=== PATIENT | female | born 2000 | race Two or more races ===

== ENCOUNTER 2020-01-20 14:26 | Emergency (ER) | payer BC ==
--- NOTE | 2020-01-20 15:26 | ER Document Report ---
ED Medical Screen (RME) - General Chief Complaint: Altered Mental Status Stated Complaint: CONFUSION/DIAHERRA Notes: Patient is a 19-year-old female who presents to the emergency department accompanied by her mother with a chief complaint of suspected serotonin syndrom e. Mom reports about a couple weeks ago the patient was started on Zoloft. She states she then saw the dentist and had her wisdom teeth removed and was placed on oxycodone. Mom reports gradually over the past week or so the patient has become more "manic". She states she is not eating or drinking or taking care of herself appropriately. States that the patient is "inside her head". States th at she continues to "perseverate on the coronavirus". States she is not acting her normal self and is concerned so she brought her for evaluation. I have treated and performed a rapid initial assessment of this patient. A comprehensive ED assessment and evaluation of the patient, analysis of test results and completion of medical decision making process will be conducted by additional ED providers. PHYSICAL EXAMINATION: GENERAL: Well-appearing, well-nourished and in no acute distress. Oriented to person and place. Pupils dilated Psych: Flat affect TRAVEL OUTSIDE OF THE [place] IN LAST 30 DAYS: No Past Medical History - Immunizations Immunizations up to date: Yes Hx Diphtheria, Pertussis, Tetanus Vaccination: Yes Physical Exam - Vital signs Vitals: Temp Pulse Resp BP Pulse Ox 98.4 F 94 H 16 141/97 H 97 01/20/20 14:50 01/20/20 14:50 01/20/20 14:50 01/20/20 14:50 01/20/20 14:50 Course - Vital Signs Vital signs: Temp Pulse Resp BP Pulse Ox 98.4 F 94 H 16 141/97 H 97 01/20/20 14:50 01/20/20 14:50 01/20/20 14:50 01/20/20 14:50 01/20/20 14:50
--- NOTE | 2020-01-20 16:14 | ER Document Report ---
ED General - General Chief Complaint: Altered Mental Status Stated Complaint: CONFUSION/DIAHERRA Time Seen by Provider: 01/20/20 15:52 Primary Care Provider: URSULA CORDOVA FNP-C [Primary Care Provider] - Follow up as needed Notes: HPI: 19-year-old female with past medical history of depression started on Zolo ft by her bulb brander around 1 month ago who presents today with mom. Patient did on January 06, around 2 weeks ago have a wisdom teeth taken out and was started on ibuprofen and oxycodone. Her last oxycodone was around 5 days ago. Over the last week according to mom the patient has been "sleeping less" and is been "obsessed" with the coronavirus. Decreased appetite and drinking fluids. Patient had one bout of nonbloody diarrhea last night as well as today. No vomiting. Patient denies any and all pain including headache, chest pain, or abdominal pain. No fevers or shortness of breath. She denies any auditory or visual hallucinations by stating "I do not think so". When asked about suicidal ideation she would not answer the question and mom states that she has had some suicidal ideations. No history of attempts in the past. ROS: See HPI All other review of systems reviewed and otherwise negative Reviewed vital signs and nursing note as charted by RN. PHYSICAL EXAM: CONSTITUTIONAL: Alert and oriented and responds appropriately to questions. Well-appearing; well-nourished HEAD: Normocephalic; atraumatic EYES: Slerae non-icteric; no nystagmus ENT: Normal nose; no rhinorrhea; moist mucous membranes; pharynx without lesions noted NECK: Supple without meningismus; non-tender; no cervical lymphadenopathy, no masses CARD: Regular rate and rhythm; no murmurs; symmetric distal pulses RESP: Normal chest excursion without splinting or tachypnea; breath sounds clear and equal bilaterally; no wheezes, no rhonchi, no rales ABD/GI: Normal bowel sounds; non-distended; soft, non-tender; no palpable organomegaly or masses BACK: The back appears normal and is non-tender to palpation EXT: Normal ROM in all joints; non-tender to palpation; no edema SKIN: No acute lesions noted NEURO: CN 2-12 intact; 5/5 bilateral upper and lower extremity strength with sensation intact to light touch; possibly slight hyperreflexia to bilateral patellar tendons with no clonus PSYCH: The patient's mood and manner are appropriate. Grooming and personal hygiene are appropriate. TRAVEL OUTSIDE OF THE [place] IN LAST 30 DAYS: No - Related Data Home Medications: Zoloft. Certraline 50mg. Oxycodone 5/325mg. Metformin 500mg Past Medical History - Social History Smoking Status: Never Smoker Chew tobacco use (# tins/day): No Frequency of alcohol use: Occasional Drug Abuse: None Family History: Reviewed & Not Pertinent Patient has suicidal ideation: No Patient has homicidal ideation: No - Immunizations Immunizations up to date: Yes Hx Diphtheria, Pertussis, Tetanus Vaccination: Yes Physical Exam - Vital signs Vitals: Temp Pulse Resp BP Pulse Ox 98.4 F 94 H 16 141/97 H 97 01/20/20 14:50 01/20/20 14:50 01/20/20 14:50 01/20/20 14:50 01/20/20 14:50 Course - Re-evaluation Re-evalutation: 01/20/20 16:13 Given the history and physical examination, we will obtain basic labs, EKG, drug screen, electrolytes pain I have consulted behavioral health given the patient's presentation. I would like to rule out an organic cause for the patient's symptomatology. Given the constellation of symptoms and the physical exam as detailed, patient will be reassessed. EKG shows heart of 100, normal sinus rhythm, normal axis, no ST elevation or depression. 01/20/20 18:59 On reassessment patient still has no hyperreflexia or clonus. Heart rate is mid 80s blood pressure as recorded. Mom is a clinical psychologist and feels very comfortable taking the patient home. I have expressed that we cannot 100% rule out a serotonin syndrome like presentation, but her symptoms are mild enough that I believe it is reasonable to discontinue the serotonin treatment and follow-up. I have expressed that we are able to keep the patient over here overnight and continually reassess and possibly help with outpatient resources or transfer if the patient's condition worsens. Mom again is a clinical psychologist and feels very comfortable and is desiring to take the patient home. 01/20/20 19:59 Vital signs are stable. Labs and blood work as recorded. Patient knows the date, month, and year. She describes many symptoms of depression including decreased appetite, sleep, and anhedonia. No clonus appreciated. She has stopped the Zoloft 5 days ago. Mom states the symptoms started around January 06 when she had her wisdom teeth taken out. I have had a long discussion with the patient and the mom. I have offered observation overnight with psychology evaluation in the morning. I do believe that this would be the safest option. Mom states she has absolutely no concern about the safety of the patient at home in regards to injuring herself or others. Patient's vital signs have been stable and she is not tachycardic. She is answering all questions appropriately. She is already stopped the SSRI medication. She denies any auditory visual hallucinations. She denies any active suicidal ideations. Mom is a clinical psychologist and she feels very comfortable taking the patient home. She states she was sleep in the room with the patient and promises to go to the psychologist tomorrow. I do believe that this is a reasonable option. Patient will be discharged home with strict return precautions after the liter of fluid has been complete. - Vital Signs Vital signs: Temp Pulse Resp BP Pulse Ox 97.5 F 89 18 119/86 H 100 01/20/20 19:04 01/20/20 19:04 01/20/20 19:04 01/20/20 19:04 01/20/20 19:04 - Laboratory Result Diagrams: 01/20/20 16:05 01/20/20 16:05 Laboratory results interpreted by me: 01/20/20 01/20/20 16:05 18:05 Urine Protein 30 H Urine Ketones 80 H Leukocyte Esterase Rfl TRACE H Salicylates < 1.0 L Acetaminophen < 10 L Discharge - Discharge Clinical Impression: Agitation Condition: Good Disposition: HOME, SELF-CARE Additional Instructions: Come back immediately with any increased agitation, any confusion, fevers or vomiting, return of diarrhea, abdominal pain, pain to any other location, or any other acute problems. Please make sure that you have the patient follow-up with a psychologist tomorrow as you have discussed. Referrals: URSULA CORDOVA, IVÁN-C [Primary Care Provider] - Follow up as needed
[2020-01-20 16:22] LABS: ABSOLUTE LYMPHOCYTES (AUTO) 1.4 10^3/uL (0.5-4.7); ABSOLUTE MONOCYTES (AUTO) 0.4 10^3/uL (0.1-1.4); ABSOLUTE NEUT (AUTO) 6.2 10^3/uL (1.7-8.2); BASOPHILS % (AUTO) 0.6 % (0-2); EOSINOPHILS % (AUTO) 0.3 % (0-6); HEMATOCRIT 40.7 % (36.0-47.0); HEMOGLOBIN 13.8 g/dL (12.0-15.5); LYMPHOCYTES % (AUTO) 17.2 % (13-45); MEAN CORPUSCULAR HEMOGLOBIN 27.8 pg (27.0-33.4); MEAN CORPUSCULAR VOLUME 82 fl (80-97); MONOCYTES % (AUTO) 4.7 % (3-13); PLATELET COUNT 421 10^3/uL (150-450); RED BLOOD COUNT 4.98 10^6/uL (3.72-5.28); RED CELL DISTRIBUTION WIDTH 13.2 % (11.5-14.0); SEGMENTED NEUTROPHILS % (AUTO) 77.2 % (42-78); TOTAL CELLS COUNTED % (AUTO) 100 %
[2020-01-20 16:41] LABS: ALBUMIN 4.8 g/dL (3.7-5.6); ALKALINE PHOSPHATASE 78 U/L (50-135); ANION GAP 14 (5-19); ASPARTATE AMINO TRANSFERASE 18 U/L (5-30); BILIRUBIN,DIRECT 0.2 mg/dL (0.0-0.4); BILIRUBIN,TOTAL 0.6 mg/dL (0.2-1.3); BLOOD UREA NITROGEN 13 mg/dL (7-20); CALCIUM 9.8 mg/dL (8.4-10.2); CARBON DIOXIDE 23 mmol/L (22-30); CHLORIDE 103 mmol/L (98-107); GLUCOSE 85 mg/dL (75-110); POTASSIUM 4.3 mmol/L (3.6-5.0); TOTAL PROTEIN 8.1 g/dL (6.3-8.2)
[2020-01-20 16:42] LABS: ACETAMINOPHEN < 10 ug/mL (10-30); ALCOHOL < 10 mg/dL (NONE DETECTED); SALICYLATE < 1.0 mg/dL (2.0-20.0)
[2020-01-20 18:59] LABS: AMORPHOUS SEDIMENT,URINE TRACE /HPF; APPEARANCE,URINE TURBID; BILIRUBIN,URINE NEGATIVE (NEGATIVE); COLOR,URINE AMBER; GLUCOSE, URINE NEGATIVE (NEGATIVE); KETONES,URINE 80 mg/dL (NEGATIVE); PROTEIN,URINE 30 mg/dL (NEGATIVE); URINE SPECIFIC GRAVITY 1.024; UROBILINOGEN,URINE NEGATIVE mg/dL (<2.0)
[2020-01-20] MEDS ORDERED: NORMAL SALINE 1000 ML 1,000 ML IV ONE (19:01)
[2020-01-20 19:14] LABS: URINE AMPHETAMINES SCREEN NEGATIVE; URINE BARBITURATES SCREEN NEGATIVE; URINE COCAINE SCREEN NEGATIVE; URINE MARIJUANA (THC) SCREEN NEGATIVE; URINE METHADONE SCREEN NEGATIVE; URINE PHENCYCLIDINE SCREEN NEGATIVE
[2020-01-20 19:18] LABS: URINE BENZODIAZEPINES SCREEN UNCONFIRMED POSITIVE
[2020-01-20 20:43] VITALS: BP 116/71
--- NOTE | 2020-01-20 21:48 | EKG REPORT ---
SEVERITY:- NORMAL ECG - SINUS TACHYCARDIA INFERIOR Q WAVES, PROBABLY NORMAL VARIATION : Confirmed by: Claribel Canales MD 20-Jan-2020 21:47:37
== END 2020-01-20 20:56 | disposition home or self-care (01) ==
LOC: ER 14:26
DX: R45.1 Restlessness and agitation (principal); R41.82 Altered mental status, unspecified; R19.7 Diarrhea, unspecified; R63.0 Anorexia; R19.5 Other fecal abnormalities; R45.851 Suicidal ideations; Z79.899 Other long term (current) drug therapy; Z79.84 Long term (current) use of oral hypoglycemic drugs
CPT/HCPCS: 93005; 99285; 96360; 36415; 80307 ×4; 85025; 81025; 80053; 81001; 93010; J7030